=== PATIENT | female | born 1960 | race Caucasian/White ===

== ENCOUNTER → 2017-09-27 | Outpatient (CLI) | payer BC | END | disposition home or self-care (01) | LOC: LAB 08:00 | DX: N39.0 Urinary tract infection, site not specified (principal); D64.9 Anemia, unspecified; D68.9 Coagulation defect, unspecified ==

== ENCOUNTER 2017-10-07 10:19 | Day surgery (SDC) | payer BC ==
[2017-09-27 11:53] LABS: ADD MAN DIFF? NO
[2017-09-27 12:09] LABS: ADD UMIC YES; UR ASCORBIC ACID NEGATIVE (NEGATIVE); UR BACTERIA FEW /HPF (NONE SEEN); UR BILIRUBIN (Dip) NEGATIVE (NEGATIVE); UR BLOOD (Dip) 1+ mg/dL (NEGATIVE); UR CLARITY CLEAR (CLEAR); UR COLOR YELLOW (YELLOW); UR GLUCOSE (Dip) NEGATIVE (NEGATIVE); UR KETONES (Dip) NEGATIVE (NEGATIVE); UR LEUKOCYTE ESTERASE (Dip) NEGATIVE Leu/ul (NEGATIVE); UR NITRITE (Dip) NEGATIVE (NEGATIVE); UR RBC 2 /HPF (0-5); UR SPECIFIC GRAVITY (Dip) 1.012 (1.003-1.030); UR SQUAMOUS EPITHELIAL CELL FEW /HPF (FEW); UR TOTAL PROTEIN (Dip) NEGATIVE (NEGATIVE); UR UROBILINOGEN (Dip) NEGATIVE (NEGATIVE); UR WBC 1 /HPF (0-5)
[2017-09-27 12:13] LABS: WHITE BLOOD COUNT 5.8 10^3/ul (4.8-10.8)
[2017-09-27 12:13] LABS: BASOPHILS % 0.3 % (0.0-2.0); EOSINOPHILS # 0.1 10^3/ul (0.0-0.5); EOSINOPHILS % 1.7 % (0.0-7.0); HEMATOCRIT 38.5 % (37.0-47.0); HEMOGLOBIN 12.1 g/dl (12.0-16.0); LYMPHOCYTES # 1.9 10^3/ul (0.8-2.9); LYMPHOCYTES % 32.5 % (15.0-51.0); MEAN CORPUSCULAR HEMOGLOBIN 28.9 pg (29.0-33.0); MEAN CORPUSCULAR HGB CONC 31.4 g/dl (32.0-37.0); MEAN CORPUSCULAR VOLUME 91.9 fl (82.0-101.0); MEAN PLATELET VOLUME 9.5 fl (7.4-10.4); MONOCYTE # 0.4 10^3/ul (0.3-0.9); MONOCYTES % 6.6 % (0.0-11.0); NEUTROPHIL # 3.4 10^3/ul (1.6-7.5); NEUTROPHILS % 58.6 % (39.0-77.0); PLATELET COUNT 276 10^3/UL (140-415); RED BLOOD COUNT 4.19 10^6/ul (4.20-5.40); RED CELL DISTRIBUTION WIDTH 12.5 % (11.5-14.5)
[2017-09-27 12:14] LABS: INR 0.91; PROTIME 12.3 Sec (11.9-14.9)
[2017-09-27 12:28] LABS: ALANINE AMINOTRANSFERASE 30 IU/L (13-69); ALBUMIN 4.5 g/dl (3.3-4.9); ALBUMIN/GLOBULIN RATIO 1.55; ALKALINE PHOSPHATASE 99 IU/L (42-121); ANION GAP 14 (8-16); ASPARTATE AMINO TRANSFERASE 21 IU/L (15-46); BILIRUBIN,INDIRECT 0.4 mg/dl (0-1.1); BILIRUBIN,TOTAL 0.4 mg/dl (0.2-1.3); BLOOD UREA NITROGEN 11 mg/dl (7-20); CALCIUM 9.3 mg/dl (8.4-10.2); CARBON DIOXIDE 27 mmol/L (21-31); CHLORIDE 106 mmol/L (97-110); CREATININE 0.82 mg/dl (0.44-1.00); GLUCOSE 91 mg/dl (70-220); POTASSIUM 4.4 mmol/L (3.5-5.1); SODIUM 143 mmol/L (135-144); TOTAL PROTEIN 7.4 g/dl (6.1-8.1)
[~2017-10-07 10:19] MED LIST: DEXAMETHASONE 4 MG/ML 1 ML INJ
[2017-10-07] MEDS ORDERED: FENTAnyl 50 MCG/ML VIAL (12:39)
[2017-10-07] MEDS ORDERED: MIDAZOLAM 1 MG/ML 2 ML INJ (12:39)
[2017-10-07] MEDS ORDERED: ONDANSETRON 4 MG INJ (12:52)
[2017-10-07] MEDS ORDERED: GLYCOPYRROLATE 0.4 MG INJ (13:17)
[2017-10-07] MEDS: BUPIVACAINE 0.25% (MPF) 30 ML INJ (13:17)
[2017-10-07] MEDS ORDERED: LIDOCAINE 100 MG SYRINGE (13:17)
[2017-10-07] MEDS ORDERED: PROPOFOL 20 ML (13:17)
[2017-10-07] MEDS: LIDOCAINE 1% (MPF) 30 ML INJ (13:18)
[2017-10-07] MEDS: TRIAMCINOLONE ACET 40 MG/ML INJ (13:18)
[2017-10-07] MEDS ORDERED: HYDROmorphONE 2 MG/ML SYG (13:53)
[2017-10-07] MEDS ORDERED: TRIAMCINOLONE ACET 40 MG/ML INJ (14:05)
[2017-10-07] MEDS ORDERED: HYDROmorphONE 1 MG/5 ML IV SYRINGE IV ×3 (14:30)
[2017-10-07] MEDS ORDERED: OXYCODONE/ACETAMINOPHEN (5/325) TAB PO ×2 (14:30)
[2017-10-07] MEDS ORDERED: KETOROLAC 30 MG INJ IV (14:30)
[2017-10-07] MEDS ORDERED: FENTAnyl 50 MCG/ML VIAL IV ×2 (14:30)
[2017-10-07] MEDS: FENTAnyl 50 MCG/ML VIAL IV (14:37)
[2017-10-07] MEDS: ONDANSETRON 4 MG INJ IV (14:42)
[2017-10-07] MEDS ORDERED: ROPIVACAINE 0.5 % 30 ML VIAL (15:25)
[2017-10-07] MEDS ORDERED: LIDOCAINE 1% (MPF) 30 ML INJ (15:25)
== END 2017-10-07 16:35 | disposition home or self-care (01) ==
LOC: SDS 10:19
DX: M21.612 Bunion of left foot (principal); G57.62 Lesion of plantar nerve, left lower limb; E78.5 Hyperlipidemia, unspecified
CPT/HCPCS: 28299; 71046; 80053; 81001; 85025; 85610; 85730; 87086; 93005

== ENCOUNTER → 2017-11-13 | Outpatient (CLI) | payer BC ==
[2017-11-13 13:59] LABS: ADD MAN DIFF? NO
[2017-11-13 14:02] LABS: WHITE BLOOD COUNT 6.5 10^3/ul (4.8-10.8)
[2017-11-13 14:02] LABS: BASOPHILS % 0.3 % (0.0-2.0); EOSINOPHILS # 0.1 10^3/ul (0.0-0.5); EOSINOPHILS % 0.8 % (0.0-7.0); HEMATOCRIT 40.8 % (37.0-47.0); HEMOGLOBIN 12.8 g/dl (12.0-16.0); LYMPHOCYTES # 2.2 10^3/ul (0.8-2.9); LYMPHOCYTES % 33.6 % (15.0-51.0); MEAN CORPUSCULAR HGB CONC 31.4 g/dl (32.0-37.0); MEAN CORPUSCULAR VOLUME 92.3 fl (82.0-101.0); MONOCYTE # 0.3 10^3/ul (0.3-0.9); MONOCYTES % 5.2 % (0.0-11.0); NEUTROPHIL # 3.9 10^3/ul (1.6-7.5); NEUTROPHILS % 59.8 % (39.0-77.0); PLATELET COUNT 282 10^3/UL (140-415); RED BLOOD COUNT 4.42 10^6/ul (4.20-5.40)
[2017-11-13 14:07] LABS: ADD UMIC YES; UR ASCORBIC ACID NEGATIVE (NEGATIVE); UR BACTERIA FEW /HPF (NONE SEEN); UR BILIRUBIN (Dip) NEGATIVE (NEGATIVE); UR BLOOD (Dip) 1+ mg/dL (NEGATIVE); UR CLARITY CLEAR (CLEAR); UR COLOR STRAW (YELLOW); UR GLUCOSE (Dip) NEGATIVE (NEGATIVE); UR KETONES (Dip) NEGATIVE (NEGATIVE); UR LEUKOCYTE ESTERASE (Dip) NEGATIVE Leu/ul (NEGATIVE); UR NITRITE (Dip) NEGATIVE (NEGATIVE); UR RBC 4 /HPF (0-5); UR SPECIFIC GRAVITY (Dip) 1.015 (1.003-1.030); UR TOTAL PROTEIN (Dip) NEGATIVE (NEGATIVE); UR UROBILINOGEN (Dip) NEGATIVE (NEGATIVE); UR WBC 1 /HPF (0-5)
[2017-11-13 14:22] LABS: INR 0.89; PARTIAL THROMBOPLASTIN TIME 24.4 Sec (25.0-35.0); PROTIME 12.1 Sec (11.9-14.9); PT RATIO 0.9
[2017-11-13 14:23] LABS: ALANINE AMINOTRANSFERASE 22 IU/L (13-69); ALBUMIN 4.6 g/dl (3.3-4.9); ALBUMIN/GLOBULIN RATIO 1.35; ALKALINE PHOSPHATASE 100 IU/L (42-121); ANION GAP 13 (8-16); ASPARTATE AMINO TRANSFERASE 20 IU/L (15-46); BILIRUBIN,INDIRECT 0.1 mg/dl (0-1.1); BILIRUBIN,TOTAL 0.1 mg/dl (0.2-1.3); BLOOD UREA NITROGEN 18 mg/dl (7-20); CALCIUM 9.2 mg/dl (8.4-10.2); CARBON DIOXIDE 26 mmol/L (21-31); CHLORIDE 105 mmol/L (97-110); CREATININE 0.85 mg/dl (0.44-1.00); GLUCOSE 85 mg/dl (70-220); SODIUM 140 mmol/L (135-144)
== END | disposition home or self-care (01) ==
LOC: LAB 13:31
DX: N39.0 Urinary tract infection, site not specified (principal); D68.9 Coagulation defect, unspecified; D64.9 Anemia, unspecified
CPT/HCPCS: 80053; 81001; 85025; 85610; 85730; 87086

== ENCOUNTER 2017-11-25 10:15 | Day surgery (SDC) | payer BC ==
[~2017-11-25 10:15] MED LIST changes: +CEFAZOLIN 1 GM INJ; -DEXAMETHASONE 4 MG/ML 1 ML INJ; +PROPOFOL 200 MG INJ
[2017-11-25] MEDS ORDERED: hydrALAzine 20 MG INJ IV (12:30)
[2017-11-25] MEDS ORDERED: ONDANSETRON 4 MG INJ IV (12:30)
[2017-11-25] MEDS ORDERED: DIPHENHYDRAMINE 50 MG INJ IV (12:30)
[2017-11-25] MEDS ORDERED: ATROPINE 1 MG/10 ML SYRINGE IV (12:30)
[2017-11-25] MEDS ORDERED: OXYCODONE/ACETAMINOPHEN (5/325) TAB PO (12:30)
[2017-11-25] MEDS ORDERED: FENTAnyl 50 MCG/ML VIAL IV ×2 (12:30)
[2017-11-25] MEDS ORDERED: HYDROmorphONE 1 MG/5 ML IV SYRINGE IV ×3 (12:30)
[2017-11-25] MEDS ORDERED: MIDAZOLAM 1 MG/ML 2 ML INJ IV (12:30)
[2017-11-25] MEDS ORDERED: morphine (1 MG/ML) 10ML SYRINGE IV ×3 (12:30)
[2017-11-25] MEDS ORDERED: LABETALOL HCL 20MG INJ IV (12:30)
[2017-11-25] MEDS ORDERED: MEPERIDINE 25 MG INJ IV (12:30)
[2017-11-25] MEDS ORDERED: EPHEDrine SULFATE 50 MG/5 ML SYG IV (12:30)
[2017-11-25] MEDS ORDERED: FENTAnyl 50 MCG/ML VIAL (12:41)
[2017-11-25] MEDS ORDERED: ROCURONIUM 50 MG INJ (12:41)
[2017-11-25] MEDS ORDERED: MIDAZOLAM 1 MG/ML 2 ML INJ (12:41)
[2017-11-25] MEDS ORDERED: NEOSTIGMINE 3 MG/3 ML SYRINGE (12:41)
[2017-11-25] MEDS ORDERED: PROPOFOL 20 ML (12:41)
[2017-11-25] MEDS ORDERED: GLYCOPYRROLATE 0.4 MG INJ (12:41)
[2017-11-25] MEDS ORDERED: DEXAMETHASONE 4 MG/ML 1 ML INJ (12:41)
[2017-11-25] MEDS ORDERED: LIDOCAINE 2% (SDV) 5 ML INJ (12:41)
[2017-11-25] MEDS ORDERED: ONDANSETRON 4 MG INJ (12:42)
[2017-11-25] MEDS: BUPIVACAINE 0.5% (SDV) 30 ML INJ (12:59)
[2017-11-25] MEDS: POLYMYXIN/BACITRACIN 1L IRRIG (13:09)
[2017-11-25] MEDS: DEXAMETHASONE 4 MG/ML 1 ML INJ (13:57)
[2017-11-25] MEDS: OXYCODONE/ACETAMINOPHEN (5/325) TAB PO (15:40)
== END 2017-11-25 16:21 | disposition home or self-care (01) ==
LOC: SDS 10:15
DX: G57.61 Lesion of plantar nerve, right lower limb (principal); M21.621 Bunionette of right foot; M20.41 Other hammer toe(s) (acquired), right foot; E78.5 Hyperlipidemia, unspecified
CPT/HCPCS: 28110

== ENCOUNTER 2018-06-19 08:05 | Day surgery (SDC) | payer BC ==
[2018-06-19] MEDS ORDERED: LIDOCAINE 2% (SDV) 5 ML INJ (09:45)
[2018-06-19] MEDS ORDERED: PROPOFOL 40 ML (09:45)
[2018-06-19] MEDS ORDERED: hydrALAzine 20 MG INJ IV (10:00)
[2018-06-19] MEDS ORDERED: LABETALOL HCL 20MG INJ IV (10:00)
[2018-06-19] MEDS ORDERED: FENTAnyl 50 MCG/ML VIAL IV (10:00)
[2018-06-19] MEDS ORDERED: EPHEDrine SULFATE 50 MG/5 ML SYG IV (10:00)
[2018-06-19] MEDS ORDERED: ONDANSETRON 4 MG INJ IV (10:00)
== END 2018-06-19 11:41 | disposition home or self-care (01) ==
LOC: GIL 08:05
DX: R19.4 Change in bowel habit (principal); K64.8 Other hemorrhoids; K57.30 Diverticulosis of large intestine without perforation or abscess without bleeding; K21.9 Gastro-esophageal reflux disease without esophagitis; K29.60 Other gastritis without bleeding
CPT/HCPCS: 43239; 88305; 88312